=== PATIENT | female | born 1980 ===

== ENCOUNTER 2024-03-15 08:45 | Inpatient (IN) | payer OTHER ==
[~2024-03-15] VITALS: Ht 152.4 cm; Wt 68.9 kg
[2024-03-15 09:09] VITALS: BP 142/78
[2024-03-15 09:13] VITALS: BP 137/80
[2024-03-15 15:14] LABS: RH NEGATIVE
[2024-03-20] MEDS ORDERED: POVIDONE-IODINE 118 ML BOTT TOP ONE (09:54)
[2024-03-20] MEDS ORDERED: CHLORHEXIDINE GLUCONATE 120 ML BOTTLE TOP ONE (09:54)
[2024-03-20] MEDS ORDERED: CEFAZOLIN SODIUM 1,000 MG VIAL ONE ×2 (09:55→16:43)
[2024-03-20] MEDS ORDERED: SUGAMMADEX SODIUM 200 MG/2 ML VIAL IV ONE (12:02)
[2024-03-20] MEDS ORDERED: MORPHINE SULFATE 4 MG/ML VIAL IV PRN (12:30)
[2024-03-20] MEDS ORDERED: RINGERS SOLUTION,LACTATED 1,000 ML IV SCH (12:30)
[2024-03-20] MEDS ORDERED: ONDANSETRON HCL 2 MG/ML VIAL IV PRN (12:30)
[2024-03-20] MEDS ORDERED: MORPHINE SULFATE 4 MG/ML VIAL IV ONE ×3 (13:05→14:35)
[2024-03-20] MEDS ORDERED: ENALAPRILAT DIHYDRATE 1.25 MG/ML VIAL IV ONE ×2 (14:20→14:50)
[2024-03-20] MEDS ORDERED: hydrALAZINE HCL 20 MG VIAL ONE (16:01)
[2024-03-20 17:15] LABS: HEMATOCRIT 35.8 % (36.0-45.00); HEMOGLOBIN 11.7 g/dL (12.0-15.00); MEAN CELL VOLUME 85.1 fL (80.00-100.00); MEAN CORPUSCULAR HGB CONC 32.8 g/dl (32.0-36.0); PLATELET COUNT 364 K/uL (150-450); RED CELL DISTRIBUTION WIDTH 23.6 % (11.5-14.5)
[2024-03-20 17:26] VITALS: BP 142/78
[2024-03-20] MEDS ORDERED: CEFAZOLIN SODIUM 1,000 MG VIAL IV SCH (18:00)
[2024-03-20 20:00] VITALS: BP 161/90
[2024-03-20 20:45] VITALS: BP 160/80
[2024-03-20 21:37] VITALS: BP 150/70
[2024-03-20] MEDS ORDERED: ENALAPRILAT DIHYDRATE 1.25 MG/ML VIAL IV PRN (22:15)
[2024-03-21] VITALS: BP 135/85
[2024-03-21] MEDS ORDERED: IBUprofen 800 MG TABLET PO SCH (08:00)
[2024-03-21 08:21] VITALS: BP 135/76
[2024-03-21] MEDS ORDERED: GABAPENTIN 300 MG CAPSULE PO SCH (09:00)
[2024-03-21] MEDS ORDERED: ENOXAPARIN SODIUM 40 MG/0.4 ML SYRINGE SUBCUTANEO SCH (09:00)
[2024-03-21] MEDS ORDERED: SIMETHICONE 125 MG CAPSULE PO SCH (09:00)
[2024-03-21 16:08] VITALS: BP 135/83
[2024-03-22] VITALS: BP 114/67
[2024-03-22] MEDS ORDERED: GABAPENTIN300 MG PO (07:28)
[2024-03-22] MEDS ORDERED: IBUPROFEN800 MG PO (07:28)
[2024-03-22] MEDS ORDERED: VASOTEC2.5 MG PO (07:28)
[2024-03-22 08:43] VITALS: BP 130/75
== END 2024-03-22 09:14 | disposition home or self-care (01) | DRG 743 ==
LOC: OB/GYN 03-20 05:15 → O/R 03-20 05:15 → SURH 03-20 08:45 → OB/GYN 03-20 14:16
PROVIDERS: ADMIT Obstetrics & Gynecology Gynecology; ATTEND Obstetrics & Gynecology Gynecology
PROC: 0UT70ZZ Resection of Bilateral Fallopian Tubes, Open Approach (ICD-10-PCS; 2024-03-20)
PROC: 0USG0ZZ Reposition Vagina, Open Approach (ICD-10-PCS; 2024-03-20)
PROC: 0US20ZZ Reposition Bilateral Ovaries, Open Approach (ICD-10-PCS; 2024-03-20)
PROC: 0UT90ZZ Resection of Uterus, Open Approach (ICD-10-PCS; principal; 2024-03-20 11:30)
DX: D25.1 Intramural leiomyoma of uterus (principal); N84.0 Polyp of corpus uteri; N80.03 Adenomyosis of the uterus; N72 Inflammatory disease of cervix uteri